=== PATIENT | male | born 1975 | race Native Hawaiian/Other Pacific Islander ===

== ENCOUNTER 2016-11-08 10:30 | Outpatient (CLI) | payer OTHER ==
[~2016-11-08 10:30] MED LIST: *LORTAB 7.5/5001 TAB PO; AMIT25TA22 PO; AMLO5TAB PO; BIAXIN500 MG PO; DEPO-TESTOS100 MG/M1 IM; OXYC40TA4 PO; TIZA4TAB5 PO; TOPAMAX50 MG PO; VITAMIN D50000 UNT PO; XANAX XR2 MG PO; XARELTO20 MG PO; ZESTRIL40 MG PO
== END 2016-11-08 10:41 | disposition short-term general hospital (02) ==
LOC: AMB 10:30
DX: R55 Syncope and collapse (principal); R61 Generalized hyperhidrosis
CPT/HCPCS: A0425; A0427

== ENCOUNTER 2016-11-08 10:41 | Emergency (ER) | payer OTHER ==
[~2016-11-08] VITALS: Ht 193 cm; Wt 79.4 kg
[2016-11-08 10:43] VITALS: TEMP 98
[2016-11-08 11:11] LABS: PLATELET COUNT 329 K/uL (142-355)
[2016-11-08 11:19] LABS: SODIUM 134 mmol/L (136-145)
[2016-11-08 15:18] VITALS: BP 136/82
== END 2016-11-08 15:20 | disposition home or self-care (01) ==
LOC: ED 10:41
PROVIDERS: Emergency Medicine
DX: R55 Syncope and collapse (principal); R11.10 Vomiting, unspecified; F19.10 Other psychoactive substance abuse, uncomplicated; I10 Essential (primary) hypertension; Z96.643 Presence of artificial hip joint, bilateral
CPT/HCPCS: 36415; 80053; 80307; 80320; 80329; 81000; 82550; 84484; 85027; 93005; 96360; 96374; 96375; 99284; G0479; J2405

== ENCOUNTER 2016-11-20 13:44 | Outpatient (CLI) | payer OTHER | END 2016-11-20 14:06 | disposition short-term general hospital (02) | LOC: AMB 13:44 | DX: M25.551 Pain in right hip (principal); R47.81 Slurred speech; V49.88XA Car occupant (driver) (passenger) injured in other specified transport accidents, initial encounter; Y92.488 Other paved roadways as the place of occurrence of the external cause | CPT/HCPCS: A0425; A0427 ==

== ENCOUNTER 2016-11-20 13:55 | Emergency (ER) | payer OTHER ==
[~2016-11-20] VITALS: Ht 188 cm; Wt 79.4 kg
[2016-11-20 15:27] LABS: PLATELET COUNT 263 K/uL (142-355)
[2016-11-20 15:44] LABS: POTASSIUM 3.5 mmol/L (3.6-5.2); SODIUM 136 mmol/L (136-145)
[2016-11-20 20:10] VITALS: BP 118/85; TEMP 98
== END 2016-11-20 20:17 | disposition short-term general hospital (02) ==
LOC: ED 13:55
PROVIDERS: Specialist
PROC: 0T9B70Z Drainage of Bladder with Drainage Device, Via Natural or Artificial Opening (ICD-10-PCS; principal; 2016-11-20)
DX: S32.424A Nondisplaced fracture of posterior wall of right acetabulum, initial encounter for closed fracture (principal); S32.491A Other specified fracture of right acetabulum, initial encounter for closed fracture; S32.591A Other specified fracture of right pubis, initial encounter for closed fracture; R40.0 Somnolence; F19.10 Other psychoactive substance abuse, uncomplicated; V57.0XXA Driver of pick-up truck or van injured in collision with fixed or stationary object in nontraffic accident, initial encounter; Y92.89 Other specified places as the place of occurrence of the external cause
CPT/HCPCS: 51702; 80048; 80307; 80320; 81000; 82150; 82550; 83605; 83690; 84484; 85027; 93005; 99285; G0479

== ENCOUNTER 2016-11-20 19:53 | Outpatient (CLI) | payer OTHER | END 2016-11-20 21:45 | disposition short-term general hospital (02) | LOC: AMB 19:53 | DX: S32.424A Nondisplaced fracture of posterior wall of right acetabulum, initial encounter for closed fracture (principal); S32.491A Other specified fracture of right acetabulum, initial encounter for closed fracture; S32.591A Other specified fracture of right pubis, initial encounter for closed fracture; R40.0 Somnolence; F19.10 Other psychoactive substance abuse, uncomplicated; V57.0XXA Driver of pick-up truck or van injured in collision with fixed or stationary object in nontraffic accident, initial encounter; Y92.89 Other specified places as the place of occurrence of the external cause | CPT/HCPCS: A0425; A0429 ==

== ENCOUNTER 2018-05-12 09:52 | Outpatient (CLI) | payer OTHER | END 2018-05-12 22:22 | disposition home or self-care (01) | LOC: RAD 09:52 → LABW 09:52 | DX: Z01.818 Encounter for other preprocedural examination (principal) ==